=== PATIENT | female | born 1990 | race Caucasian/White ===

== ENCOUNTER 2017-01-20 20:18 | Emergency (ER) | payer OTHER ==
--- NOTE | 2017-01-20 20:31 | PDOC ---
Rapid Medical Evaluation Time Seen by Provider: 01/20/17 20:26 Medical Evaluation: Allergies Allergy/AdvReac Type Severity Reaction Status Date / Time No Known Allergies Allergy Verified 06/30/12 19:03 01/20/17 20:26 I have performed a brief in-person evaluation of this patient. The patient presents with a chief complaint of: Discoloration w/ swelling to L arm since yesterday, denies trauma. No pmhx Pertinent physical exam findings: Stable w/ 7x4cm area of ecchymosis w/ ~1cm central area of localized swelling to volar aspect of L forearm, no sig ttp I have ordered the following:nothing, will defer management to ED provider The patient will proceed to the ED for further evaluation.
[2017-01-20 20:33] VITALS: BP 119/67; PULSE 66; TEMP 98.3; BMI 25.7
[2017-01-20] MEDS ORDERED: IBUPROFEN 600 MG TABLET (FP) PO ONE ×2 (21:12→21:21)
--- NOTE | 2017-01-20 21:19 | PDOC ---
History of Present Illness - General Chief Complaint: Pain Stated Complaint: BRUISE/ARM PAIN Time Seen by Provider: 01/20/17 20:26 History Source: Patient Exam Limitations: No Limitations - History of Present Illness Initial Comments: 01/20/17 21:14 26 yr female no medical history or allergies states yesterday after getting out of the shower noticed "green bruise" to left forearm, today more swollen and black and blue. Pt denies trauma, no other areas of bruising , no fever or chills. Pt states tender to touch . Occurred: reports: yesterday Severity: reports: mild Upper Extremity Pain Location: left: forearm Method of Injury: reports: unknown Modifying Factors: improves with: None Past History - Past Medical History Allergies/Adverse Reactions: Allergies Allergy/AdvReac Type Severity Reaction Status Date / Time No Known Allergies Allergy Verified 01/20/17 20:33 Home Medications: Ambulatory Orders No Home Medications 0 dose .ROUTE UTDICT 03/11/12 Anemia: Yes - Psycho/Social/Smoking Cessation Hx Anxiety: No Suicidal Ideation: No Smoking Status: No Smoking History: Never smoked Number of Cigarettes Smoked Daily: 0 Review of Systems - Review of Systems Able to Perform ROS?: Yes Is the patient limited Slovenian proficient: No Constitutional: No: Symptoms Reported HEENTM: No: Symptoms Reported Respiratory: No: Symptoms reported Cardiac (ROS): No: Symptoms Reported ABD/GI: No: Symptoms Reported : No: Symptoms Reported Musculoskeletal: Yes: Symptoms Reported *Physical Exam - Vital Signs Last Vital Signs Temp Pulse Resp BP Pulse Ox 98.3 F 66 18 119/67 99 01/20/17 20:28 01/20/17 20:28 01/20/17 20:28 01/20/17 20:28 01/20/17 20:28 - Physical Exam General Appearance: Yes: Nourished, Appropriately Dressed HEENT: positive: EOMI, SIERRA, TMs Normal, Pharynx Normal Neck: negative: Tender Respiratory/Chest: positive: Lungs Clear, Normal Breath Sounds. negative: Chest Tender Cardiovascular: positive: Regular Rhythm, Regular Rate Musculoskeletal: positive: Normal Inspection Extremity: positive: Normal Capillary Refill Integumentary: positive: Normal Color, Dry, Warm Neurologic: positive: Fully Oriented, Alert, Normal Mood/Affect, Normal Response , Motor Strength 5/5 ED Treatment Course - RADIOLOGY Radiology Studies Ordered: Category Date Time Status FOREARM- LEFT [RAD] Stat Radiology 01/20/17 21:12 Ordered Medical Decision Making - Medical Decision Making 01/20/17 21:43 cc: bruising to left inner forearm noted yesterday AM no other areas of bruising noted, motrin given xray done negative xray pt to follow up with PMD this week apply warm compresses to the area of pain every 3hrs for 20 minutes *DC/Admit/Observation/Transfer Diagnosis at time of Disposition: Hematoma - Discharge Dispostion Disposition: HOME Condition at time of disposition: Good - Referrals Referrals: STAFF,NOT ON [Primary Care Provider] - - Patient Instructions Additional Instructions: apply warm compresses every 3-4hrs for 20 minutes take motrin for pain as needed follow with your primary care doctor for further evaluation in 1-2 days Return to ER for any worsening symptoms
== END 2017-01-20 21:49 | disposition home or self-care (01) ==
LOC: JERFT 20:18
DX: S50.12XA Contusion of left forearm, initial encounter (principal); D64.9 Anemia, unspecified
CPT/HCPCS: 73090-TC-LT; 99281-25